=== PATIENT | female | born 1990 | race Hispanic/Latino ===

== ENCOUNTER 2018-05-04 00:21 | Emergency (ER) | payer BC ==
[2018-05-04 00:58] LABS: #Basophils 0.1 thou/uL (0.0-0.2); #Eosinphils 0.4 thou/uL (0.0-0.7); #Lymphocytes 2.6 thou/uL (1.20-3.40); #Monocytes 0.6 thou/uL (0.11-0.59); #Neutrophils 6.8 thou/uL (1.40-6.50); %Basophils 0.7 % (0.0-1.0); %Eosinophils 3.9 % (0.0-10.0); %Lymphocytes 24.6 % (21.0-51.0); %Monocytes 6.1 % (0.0-10.0); %Neutrophils 64.6 % (42.0-75.0); Hemoglobin 12.7 g/dL (12.0-16.0); Mean Platelet Volume 7.8 fL (7.4-10.4); Platelet Count 259 thou/uL (130-400); RBC Distribution Width 12.9 % (11.5-14.5); White Blood Cell (WBC) Count 10.5 thou/uL (4.8-10.8)
[2018-05-04 01:23] LABS: ALT (SGPT) 14 U/L (8-55); AST (SGOT) 14 U/L (5-34); Albumin 3.9 g/dL (3.5-5.0); Alkaline Phosphatase 66 U/L (40-150); Anion Gap 13 mmol/L (10-20); BUN (Urea Nitrogen) 9 mg/dL (7.0-18.7); Bilirubin, Total 0.3 mg/dL (0.2-1.2); Calc. Creatinine Clearance 0 mL/min (70-130); Calcium 9.4 mg/dL (7.8-10.44); Carbon Dioxide 20 mmol/L (22-29); Chloride 105 mmol/L (98-107); Estimated GFR-MDRD Greater than 90; Globulin 3.1 g/dL (2.4-3.5); Glucose 109 mg/dL (70-105); Potassium 3.2 mmol/L (3.5-5.1); Sodium 135 mmol/L (136-145)
== END 2018-05-04 02:25 | disposition home or self-care (01) ==
LOC: ERS 00:21
DX: O99.281 Endocrine, nutritional and metabolic diseases complicating pregnancy, first trimester (principal); E86.0 Dehydration; O99.89 Other specified diseases and conditions complicating pregnancy, childbirth and the puerperium; M06.9 Rheumatoid arthritis, unspecified; Z79.899 Other long term (current) drug therapy; Z3A.12 12 weeks gestation of pregnancy
CPT/HCPCS: 36415; 80053; 84702; 85025; 86900; 86901; 96360